=== PATIENT | male | born 1995 | race Caucasian/White ===

== ENCOUNTER 2024-10-16 16:49 | Emergency (ER) | payer MEDICAID ==
[~2024-10-16] VITALS: Ht 165.1 cm; Wt 77.1 kg
[2024-10-16 16:59] VITALS: O2SAT 97
[2024-10-16] MEDS ORDERED: GUAI-453 MT (19:32)
[2024-10-16 19:40] VITALS: BP 126/90; PULSE 77; RESP 18; TEMP 36.8; O2SAT 97
== END 2024-10-16 19:41 | disposition home or self-care (01) ==
LOC: ER 16:49
DX: B34.9 Viral infection, unspecified (principal)
CPT/HCPCS: 71045; 99283

== ENCOUNTER 2025-08-11 11:39 | Emergency (ER) | payer MEDICAID ==
[~2025-08-11] VITALS: Ht 165.1 cm; Wt 75.0 kg
[~2025-08-11 11:39] MED LIST: GUAI-453 MT
[2025-08-11 11:56] VITALS: O2SAT 98
[2025-08-11] MEDS ORDERED: MUPI15CR11 TP (12:30)
[2025-08-11] MEDS ORDERED: NAPHADR LEFTEYE (12:30)
[2025-08-11] MEDS ORDERED: ACET-2708 MT (12:30)
[2025-08-11 12:48] VITALS: BP 110/57; PULSE 60; RESP 18; TEMP 36.7; O2SAT 98
== END 2025-08-11 12:48 | disposition home or self-care (01) ==
LOC: ER 11:39
DX: L30.9 Dermatitis, unspecified (principal); H11.002 Unspecified pterygium of left eye
CPT/HCPCS: 99283